=== PATIENT | female | born 1950 | race Caucasian/White ===

== ENCOUNTER → 2017-11-04 | Outpatient (CLI) | payer BC ==
[2005-03-19 14:30] VITALS: TEMP 97
== END ==
LOC: MC.RAD 14:00
DX: Z12.31 Encounter for screening mammogram for malignant neoplasm of breast (principal)

== ENCOUNTER → 2018-12-13 | Outpatient (CLI) | payer MEDICARE, BC ==
[2005-03-19 14:30] VITALS: TEMP 97
== END ==
LOC: MC.RAD 11:12
DX: Z12.31 Encounter for screening mammogram for malignant neoplasm of breast (principal)